=== PATIENT | male | born 1950 | race Caucasian/White ===

== ENCOUNTER 2024-07-31 10:09 | Day surgery (SDC) | payer BC ==
[~2024-07-31] VITALS: Ht 172.7 cm; Wt 112.1 kg
[2024-07-31] VITALS (11 sets, daily range): BP systolic 123–153; BP diastolic 73–91; PULSE 78–109; RESP 14–16; TEMP 98.3–98.4; O2SAT 97–100
[2024-07-31] MEDS ORDERED: AMLO-379 PO (10:46)
[2024-07-31] MEDS ORDERED: POTA-207 PO (10:46)
[2024-07-31] MEDS ORDERED: METO10TA8 PO (10:46)
[2024-07-31] MEDS ORDERED: SOTA80TA PO (10:46)
[2024-07-31] MEDS ORDERED: FURO40TA4 PO (10:46)
[2024-07-31] MEDS ORDERED: DIP0.05CR TOP (10:46)
[2024-07-31] MEDS ORDERED: TIOT4MIS5 INH (10:46)
[2024-07-31] MEDS ORDERED: ALBU10.7 INH (10:46)
[2024-07-31] MEDS ORDERED: SEMA0.5P SUBCUT (10:46)
[2024-07-31] MEDS ORDERED: SILD100T70 PO (10:46)
[2024-07-31] MEDS ORDERED: APIX5TAB3 PO (10:46)
[2024-07-31] MEDS ORDERED: BUDE10.2 INH (10:46)
[2024-07-31] MEDS ORDERED: BUPR-564 PO (10:46)
[2024-07-31] MEDS ORDERED: MONT-40 PO (10:46)
[2024-07-31] MEDS ORDERED: FLO0.4C PO (10:46)
[2024-07-31 10:54] LABS: BASOPHILS % (AUTO) 0.4 % (0-1); EOSINOPHILS # (AUTO) 0.1 X10'3 (0-0.9); EOSINOPHILS % (AUTO) 1.7 % (0-6); HEMATOCRIT 40.2 % (42.0-52.0); HEMOGLOBIN 14.2 g/dl (14.0-17.9); LYMPHOCYTES # (AUTO) 1.4 X10'3 (1.1-4.8); LYMPHOCYTES % (AUTO) 17.9 % (21-51); MEAN CORPUSCULAR HEMOGLOBIN 33.3 PG (27.0-31.0); MEAN CORPUSCULAR HGB CONC 35.3 g/dL (33.0-36.5); MEAN CORPUSCULAR VOLUME 94.5 FL (78-98); MEAN PLATELET VOLUME 7.8 FL (7.4-10.4); MONOCYTES # (AUTO) 0.9 X10'3 (0-0.9); MONOCYTES % (AUTO) 11.2 % (2-12); NEUTROPHILS # (AUTO) 5.4 X10'3 (1.8-7.7); NEUTROPHILS % (AUTO) 68.8 % (42-75); PLATELET COUNT 179 X10'3 (140-440); RED BLOOD COUNT 4.25 X10'6 (4.70-6.10); RED CELL DISTRIBUTION WIDTH 14.9 % (11.5-14.5); WHITE BLOOD COUNT 7.9 X10'3 (4.5-11.0)
[2024-07-31 11:06] LABS: INR 1.2 INR; PROTHROMBIN TIME 12.4 SECONDS (9.0-12.0)
[2024-07-31 11:07] LABS: ALBUMIN 3.5 G/DL (3.4-5.0); ANION GAP 8 (8-16); BLOOD UREA NITROGEN 18 MG/DL (7-18); BUN/CREATININE RATIO 19.4 (10.0-20.0); CHLORIDE 102 MMOL/L (99-107); CREATININE 0.93 MG/DL (0.60-1.10); GLUCOSE 97 MG/DL (70-104); POTASSIUM 3.8 MMOL/L (3.5-5.1); SODIUM 137 MMOL/L (135-145); TOTAL CARBON DIOXIDE 26.8 MMOL/L (24-32); eCRCL 69 ML/MIN; eGFR 80 ML/MIN
[2024-07-31 11:12] LABS: CHOL/HDL RATIO 2.4 (0.00-4.99); CHOLESTEROL 176 MG/DL (0-200); HDL CHOLESTEROL 72 MG/DL (35-60); LDL CHOLESTEROL 92 MG/DL (50-100); TRIGLYCERIDES 45 MG/DL (20-135)
[2024-07-31] MEDS: MIDAZolam 1mg/ml 10ml vial IV ONE (12:19)
[2024-07-31] MEDS: normal saline 1000ml 1,000 ML IV SCH (12:19)
[2024-07-31] MEDS: fentaNYL/PF 50MCG/1 ML 2ML syringe IV ONE (12:19)
== END 2024-07-31 13:30 | disposition home or self-care (01) ==
LOC: SSTAY O 10:09
PROVIDERS: ATTEND Student in an Organized Health Care Education/Training Program
DX: I48.91 Unspecified atrial fibrillation (principal); I11.0 Hypertensive heart disease with heart failure; I50.9 Heart failure, unspecified; E78.00 Pure hypercholesterolemia, unspecified; J44.9 Chronic obstructive pulmonary disease, unspecified; G47.33 Obstructive sleep apnea (adult) (pediatric); F32.A Depression, unspecified; Z79.01 Long term (current) use of anticoagulants; Z79.899 Other long term (current) drug therapy; Z88.8 Allergy status to other drugs, medicaments and biological substances; Z82.49 Family history of ischemic heart disease and other diseases of the circulatory system
CPT/HCPCS: 36415; 80048; 80061; 85025; 85610; 92960; 93005; J2250; J3010; J7030